=== PATIENT | female | born 1970 | race Caucasian/White ===

== ENCOUNTER → 2017-04-09 | Outpatient (CLI) | payer BC ==
--- NOTE | 2017-04-09 09:21 | NM ---
Nuclear medicine hepatobiliary scan. HISTORY: Pain. DOSAGE: The patient received 8 ounce of Ensure plus and 5.4 mCi of Technetium 99m Choletec. FINDINGS: There is normal hepatic extraction. The gallbladder is seen by 20 minutes. There is bilia ry to bowel clearance by 60 minutes. Ejection fraction is 98%. IMPRESSION: 1. Normal filling of the gallbladder with radiotracer. 2. Ejection fraction 98% can occasionally be seen with hyperdynamic gallbladder. Correlate clinically .
== END ==
LOC: RADNMMAIN 06:50
PROVIDERS: ATTEND Nurse Practitioner Women's Health
DX: R10.84 Generalized abdominal pain (principal); R19.7 Diarrhea, unspecified
CPT/HCPCS: 78226; A9537

== ENCOUNTER → 2017-04-30 | Outpatient (CLI) | payer BC ==
--- NOTE | 2017-05-01 11:06 | MM ---
Reason for exam: screening (asymptomatic). Last mammogram was performed 3 years and 9 months ago. History: Patient had first child at age 30. Family history of breast cancer in maternal aunt. Benign excisional biopsy of the left breast, 1995. Took hormonal contraceptives for 25 years. Took progesterone for 1 month. Physical Findings: A clinical breast exam by your physician is recommended on an annual basis and results should be correlated with mammographic findings. MG Screening Mammo w CAD Bilateral CC and MLO view(s) were taken. Prior study comparison: August 03, 2013, CAD bilateral diagnostic mammogram. January 09, 2011, left diagnostic mammogram w/CAD. The breast tissue is heterogeneously dense. This may lower the sensitivity of mammography. There is no discrete abnormality. No significant changes when compared with prior studies. ASSESSMENT: Negative, BI-RAD 1 RECOMMENDATION: Routine screening mammogram of both breasts in 1 year.
== END | disposition home or self-care (01) ==
LOC: RADMAMWWP 16:40
PROVIDERS: ATTEND Family Medicine
DX: Z12.31 Encounter for screening mammogram for malignant neoplasm of breast (principal); Z80.3 Family history of malignant neoplasm of breast

== ENCOUNTER → 2018-02-11 | Outpatient (CLI) | payer BC ==
[2018-02-11 07:36] LABS: Basophils # (A) 0.1 k/uL (0-0.2); Basophils % (A) 0 %; Eosinophils # (A) 0.2 k/uL (0-0.7); Eosinophils % (A) 2 %; HCT 41.3 % (34.0-46.0); HGB 14.1 gm/dL (11.4-16.0); Lymphocytes # (A) 2.4 k/uL (1.0-4.8); Lymphocytes % (A) 21 %; MCH 32.5 pg (25.0-35.0); MCHC 34.1 g/dL (31.0-37.0); MCV 95.3 fL (80.0-100.0); Mean Platelet Volume 6.6; Monocytes # (A) 0.6 k/uL (0-1.0); Monocytes % (A) 5 %; Neutrophils # (A) 8.2 k/uL (1.3-7.7); Neutrophils % (A) 70 %; Platelet Count 259 k/uL (150-450); RBC 4.33 m/uL (3.80-5.40); RDW 13.6 % (11.5-15.5); WBC 11.7 k/uL (3.8-10.6)
[2018-02-11 09:19] LABS: Erythrocyte Sedimentation Rate 6 mm/hr (0-20)
[2018-02-11 11:16] LABS: Rheumatoid Factor 7 IU/mL (0-15)
[2018-02-11 11:24] LABS: ALT 47 U/L (9-52); AST 29 U/L (14-36); Albumin 3.9 g/dL (3.5-5.0); Alkaline Phosphatase 75 U/L (38-126); Anion Gap 11 mmol/L; Bilirubin, Delta 0.3 mg/dL (0.0-0.2); Bilirubin,Unconjugated 0.1 mg/dL (0.0-1.1); Blood Urea Nitrogen 6 mg/dL (7-17); C Reactive Protein 5.7 mg/L (<10.0); Calcium 9.2 mg/dL (8.4-10.2); Carbon Dioxide 22 mmol/L (22-30); Chloride 107 mmol/L (98-107); Cholesterol 175 mg/dL (<200); Glucose 104 mg/dL (74-99); HDL Cholesterol 28 mg/dL (40-60); LDL Cholesterol,Calculated 72 mg/dL (0-99); Potassium 3.9 mmol/L (3.5-5.1); Sodium 140 mmol/L (137-145); Total Bilirubin 0.4 mg/dL (0.2-1.3); Triglycerides 374 mg/dL (<150)
[2018-02-11 11:38] LABS: T4, Free (Free Thyroxine) 1.11 ng/dL (0.78-2.19)
[2018-02-12 12:35] LABS: HLA B27 NEGATIVE
== END | disposition home or self-care (01) ==
LOC: LABWHC1 07:14
PROVIDERS: ATTEND Family Medicine
DX: Z00.00 Encounter for general adult medical examination without abnormal findings (principal); E78.00 Pure hypercholesterolemia, unspecified; R11.0 Nausea; M13.0 Polyarthritis, unspecified; M79.1 Myalgia; R10.811 Right upper quadrant abdominal tenderness
CPT/HCPCS: 36415; 80048; 80061; 80076; 84439; 84443; 85025; 85652; 86140; 86431; 86618; 86812

== ENCOUNTER → 2018-02-19 | Outpatient (CLI) | payer BC ==
--- NOTE | 2018-02-19 10:12 | US ---
EXAMINATION TYPE: US abdomen complete DATE OF EXAM: 02/19/2018 COMPARISON: NONE CLINICAL HISTORY: R10.11 ABD PAIN. N/D, RUQ pain EXAM MEASUREMENTS: Liver Length: 16.8 cm Gallbladder Wall: 0.2 cm CBD: 0.5 cm CHD: 0.5 cm Spleen: 9.1 cm Right Kidney: 10.1 x 5.3 x 4.8 cm Left Kidney: 10.6 x 5.3 x 5.3 cm Pancreas: Tail obscured by overlying bowel gas Liver: Appears slightly echogenic. Areas of focal sparing seen. Gallbladder: wnl Evidence for sonographic Truong's sign: neg CBD: wnl CHD: wnl Spleen: wnl Right Kidney: wnl Left Kidney: wnl Upper IVC: wnl Abd Aorta: atherosclerotic changes seen The liver is heterogenous which may reflect fatty hepatic infiltration. The intrahepatic portion of t he IVC and proximal abdominal aorta are within normal limits. There is no evidence of cholelithiasis . Common bile duct is unremarkable. The visualized portions of the pancreas are homogenous. The sp munira is unremarkable. Kidneys are symmetric and free of hydronephrosis. No renal lesions are seen. IMPRESSION: 1. Mild fatty hepatic infiltration.
== END | disposition home or self-care (01) ==
LOC: RADUSWWP 09:26
PROVIDERS: ATTEND Family Medicine
DX: K76.0 Fatty (change of) liver, not elsewhere classified (principal)
CPT/HCPCS: 76700

== ENCOUNTER → 2018-03-19 | Outpatient (CLI) | payer BC ==
--- NOTE | 2018-03-19 09:29 | NM ---
Nuclear medicine hepatobiliary scan. HISTORY: Pain. COMPARISON: 04/09/2017 DOSAGE: The patient received 8 ounces of ensure plus and 5.3 mCi of Technetium 99m Choletec. FINDINGS: There is normal hepatic extraction. The gallbladder is seen by 20 minutes. There is bilia ry to bowel clearance by 30 minutes. Ejection fraction is 82%. IMPRESSION: 1. No evidence of cholecystitis. 2. Ejection fraction 82%
== END | disposition home or self-care (01) ==
LOC: RADNMMAIN 06:40
PROVIDERS: ATTEND Surgery
DX: R10.11 Right upper quadrant pain (principal)
CPT/HCPCS: 78227; A9537; J2805

== ENCOUNTER → 2018-07-21 | Outpatient (CLI) | payer BC ==
--- NOTE | 2018-07-21 11:02 | CT ---
EXAMINATION TYPE: CT brain wo/w con DATE OF EXAM: 07/21/2018 COMPARISON: MRI brain September 24, 2014 HISTORY: right side head pressure sudden onset and dizziness. CT DLP: 1956.4 mGycm Automated Exposure Control for Dose Reduction was Utilized. TECHNIQUE: CT scan of the head is performed without and with with IV Contrast, patient injected with 100 mL of Isovue 300. FINDINGS: Noncontrast images show no acute intracranial hemorrhage or midline shift. The ventricles and sulci are stable and within normal limits in size. Postcontrast images show no suspicious enhanc ing intraparenchymal mass. There is suspected stable left central posterior posterior fossa mass or a rachnoid cyst measuring 1.3 x 1.2 x 2.4 cm on axial image 12 and coronal image 54. Mild patchy mucosa l thickening bilateral ethmoid sinuses is redemonstrated. The globes are intact and the visualized si nuses otherwise are clear. Mastoid air cells show no suspicious opacification. IMPRESSION: Mild chronic ethmoid sinus disease redemonstrated. There is suspected small arachnoid cys t just left of midline in the posterior aspect posterior fossa unchanged in size and appearance from prior MRI. No suspicious new findings are seen to account for patient's symptoms.
[2018-07-21 11:09] LABS: Basophils # (A) 0.1 k/uL (0-0.2); Basophils % (A) 1 %; Eosinophils # (A) 0.2 k/uL (0-0.7); Eosinophils % (A) 1 %; HCT 43.5 % (34.0-46.0); HGB 13.6 gm/dL (11.4-16.0); Lymphocytes # (A) 2.1 k/uL (1.0-4.8); Lymphocytes % (A) 18 %; MCH 30.6 pg (25.0-35.0); MCHC 31.4 g/dL (31.0-37.0); MCV 97.6 fL (80.0-100.0); Mean Platelet Volume 7.2; Monocytes # (A) 0.3 k/uL (0-1.0); Monocytes % (A) 3 %; Neutrophils # (A) 8.5 k/uL (1.3-7.7); Neutrophils % (A) 76 %; Platelet Count 280 k/uL (150-450); RBC 4.46 m/uL (3.80-5.40); RDW 13.1 % (11.5-15.5); WBC 11.2 k/uL (3.8-10.6)
[2018-07-21 11:25] LABS: ALT 50 U/L (9-52); AST 35 U/L (14-36); Albumin 4.3 g/dL (3.5-5.0); Alkaline Phosphatase 64 U/L (38-126); Anion Gap 12 mmol/L; Blood Urea Nitrogen 10 mg/dL (7-17); Calcium 9.8 mg/dL (8.4-10.2); Carbon Dioxide 22 mmol/L (22-30); Chloride 108 mmol/L (98-107); Glucose 170 mg/dL (74-99); Sodium 142 mmol/L (137-145); Total Bilirubin 0.4 mg/dL (0.2-1.3); Total Protein 6.9 g/dL (6.3-8.2)
[2018-07-21 11:33] LABS: Potassium 4.6 mmol/L (3.5-5.1)
== END | disposition home or self-care (01) ==
LOC: RADCTMAIN 10:17
PROVIDERS: ATTEND Family Medicine
DX: H53.9 Unspecified visual disturbance (principal); F17.200 Nicotine dependence, unspecified, uncomplicated
CPT/HCPCS: 80053; 84443; 85025; 70470; 36415; Q9967

== ENCOUNTER → 2018-09-05 | Outpatient (CLI) | payer BC ==
--- NOTE | 2018-09-08 11:56 | MM ---
Reason for exam: screening (asymptomatic). Last mammogram was performed 1 year and 4 months ago. History: Patient is postmenopausal and had first child at age 30. Family history of breast cancer in maternal aunt. Benign excisional biopsy of the left breast, 1995. Took hormonal contraceptives for 25 years. Took progesterone for 1 month. Physical Findings: A clinical breast exam by your physician is recommended on an annual basis and results should be correlated with mammographic findings. MG Screening Mammo w CAD Bilateral CC and MLO view(s) were taken. Prior study comparison: April 30, 2017, bilateral MG screening mammo w CAD. August 03, 2013, CAD bilateral diagnostic mammogram. The breast tissue is heterogeneously dense. This may lower the sensitivity of mammography. No suspicious abnormality. No significant changes when compared with prior studies. ASSESSMENT: Negative, BI-RAD 1 RECOMMENDATION: Routine screening mammogram of both breasts in 1 year.
== END | disposition home or self-care (01) ==
LOC: RADMAMWWP 15:29
PROVIDERS: ATTEND Family Medicine
DX: Z12.31 Encounter for screening mammogram for malignant neoplasm of breast (principal); Z80.3 Family history of malignant neoplasm of breast
CPT/HCPCS: 77067

== ENCOUNTER → 2018-10-01 | Outpatient (CLI) | payer BC | LOC: NEUROMAIN 06:48 | PROVIDERS: ATTEND Otolaryngology | DX: R42 Dizziness and giddiness (principal) | CPT/HCPCS: 92537; 92540 ==

== ENCOUNTER → 2020-09-21 | Outpatient (CLI) | payer BC ==
--- NOTE | 2020-09-21 14:55 | XR ---
EXAMINATION TYPE: XR chest 2V DATE OF EXAM: 09/21/2020 COMPARISON: NONE TECHNIQUE: PA and lateral views submitted. HISTORY: Chest pain FINDINGS: The lungs are clear and there is no pneumothorax, pleural effusion, or focal pneumonia. Heart size normal. No overt failure. Arthropathy of the shoulders. Hypertrophic and degenerative change of the s pine. IMPRESSION: 1. No acute process.
--- NOTE | 2020-09-21 15:55 | XR ---
EXAM TYPE: LUMBAR SPINE X RAY SERIES COMPARISON: NONE HISTORY: Pain TECHNIQUE: 4 views are submitted. FINDINGS: Alignment is anatomic. The pedicles are intact. The transverse processes are intact. There is mult ilevel degenerative disc disease most marked at L4-L5 with facet arthropathy. Grade 1 anterolisthesis L4 on L5.. Calcifications in the left upper quadrant noted. Metallic density within the pelvis. Vas cular calcifications are seen. IMPRESSION: 1. Multilevel moderate to severe degenerative disc disease most marked at L4-L5 with grade 1 anteroli sthesis. Recommend MRI..
== END | disposition home or self-care (01) ==
LOC: LABWHC1 13:58
PROVIDERS: ATTEND Nurse Practitioner Women's Health
DX: R06.81 Apnea, not elsewhere classified (principal); R06.02 Shortness of breath; M54.18 Radiculopathy, sacral and sacrococcygeal region; R07.9 Chest pain, unspecified; R06.9 Unspecified abnormalities of breathing; M43.16 Spondylolisthesis, lumbar region; M51.36 Other intervertebral disc degeneration, lumbar region
CPT/HCPCS: 36415; 71046; 72110; 93005

== ENCOUNTER → 2020-11-02 | Outpatient (CLI) | payer BC ==
--- NOTE | 2020-11-02 16:42 | CONS ---
CONSULTATION DATE OF SERVICE: 11/02/2020 REASON FOR CONSULTATION: A 50-year-old lady who has been evaluated in the sleep center for possible obstructive sleep apnea-hypopnea syndrome. HISTORY OF PRESENT ILLNESS/SLEEP-WAKE EVALUATION: Patient's usual sleep schedule on weekdays from 7 to 10 PM to 5:15 am and on weekends from 11:00 PM until 6 or 7 a.m. Usually no problems with falling asleep, although she has TV set in bedroom. She sleeps on the side and sometimes in different positions. She has loud snoring and awakenings from sleep a few times with witnessed episodes of stopped breathing during sleep, but also with episodes of choking, gasping for air. She has also episodes of panic attacks when she wakes up and when she cannot breathe. Positive history of grinding teeth and sweating. Positive history of sleep talking. In the morning the patient wakes up tired and has difficulties paying attention. She has problems with memory, concentration, diabetes, depression and anxiety. Nebo Sleepiness Scale increased to 12. Usually patient does not take naps. No history of hypnagogic hallucinations, sleep paralysis or cataplexy. PAST MEDICAL HISTORY: Positive for episodes of headaches, sinus problems, acid reflux, endometriosis. PAST SURGICAL HISTORY: Partial hysterectomy, , endometrial ablation. MEDICATIONS: Celecoxib 200 mg twice a day. SOCIAL HISTORY: Positive history of smoking for about 13 pack years. Quit smoking in February of 2020. REVIEW OF SYSTEMS: Awakenings from sleep, loud snoring, sleepiness during the day. PHYSICAL EXAMINATION: GENERAL: Patient without distress. BP 146/73, HR 68, RR 12, height 5 feet 4 inches, weight 229, BMI 39.3, oxygen saturation at room air 97%. HEENT: PERRLA, EOMI, evaluation of oropharynx showed tongue protrudes midline, low position of soft palate, Mallampati 3. NECK: Supple, no JVD. Thyroid is not palpable. Wide neck 18 inches in circumference. LUNGS: Clear to percussion and to auscultation. Good air exchange. No wheezing or rhonchi. HEART: S1, S2 regular. No murmurs, gallops, or rubs. ABDOMEN: Obese, soft and nontender. Bowel sounds are present. No organomegaly appreciated. EXTREMITIES: No clubbing or cyanosis. NAVAL AIRCREWMAN HELICOPTER: Awake, alert, and oriented X3. Cranial nerves 2 to 7 intact. There is no fasciculation or atrophy. noted. No focal deficits observed. IMPRESSION: 1. Loud snoring, witnessed episodes of stopped breathing during sleep, multiple awakenings from sleep with episodes of choking. Low position of soft palate, wide neck 18 inches in circumference. Nebo Sleepiness Scale increased to 12; obstructive sleep apnea-hypopnea syndrome. 2. Obesity with BMI 39.2. 3. Headaches. 4. Sinuses problems. 5. History of acid reflux. 6. History of endometriosis in the past. 7. Status post partial hysterectomy. 8. Status post . PLAN: 1. Home sleep apnea test for evaluation of patient's breathing during sleep. 2. CPAP/BiPAP titration if sleep study confirms obstructive sleep apnea-hypopnea syndrome. 3. Preferable position during sleep on the side. 4. No driving if patient feels any sleepiness. 5. I will see patient for follow up visit to explain results of testing and following plan. Thank you very much for allowing me to participate in the management of your patient. Sincerely, Hansel Gary MD, PhD, FAASM Diplomat of [place] [employer] [place] [employer] Plant Technical Specialist of [facility] [place] MMODL / IJN: [id number] /
== END ==
LOC: SLEEP 15:35
PROVIDERS: ATTEND Internal Medicine
DX: G47.33 Obstructive sleep apnea (adult) (pediatric) (principal); E66.9 Obesity, unspecified; Z68.39 Body mass index [BMI] 39.0-39.9, adult; K21.9 Gastro-esophageal reflux disease without esophagitis; R51.9 Headache, unspecified; Z87.42 Personal history of other diseases of the female genital tract; Z90.711 Acquired absence of uterus with remaining cervical stump; Z98.890 Other specified postprocedural states; Z87.891 Personal history of nicotine dependence
CPT/HCPCS: 99211

== ENCOUNTER → 2021-01-23 | Outpatient (CLI) | payer BC ==
--- NOTE | 2021-01-24 11:13 | MM ---
Reason for exam: screening (asymptomatic). Last mammogram was performed 2 years and 5 months ago. History: Patient is postmenopausal and had first child at age 30. Family history of breast cancer in maternal aunt. Benign excisional biopsy of the left breast, 1995. Took hormonal contraceptives for 25 years. Took progesterone for 1 month. Physical Findings: A clinical breast exam by your physician is recommended on an annual basis and results should be correlated with mammographic findings. MG Screening Mammo w CAD Bilateral CC and MLO view(s) were taken. Prior study comparison: September 05, 2018, bilateral MG screening mammo w CAD. April 30, 2017, bilateral MG screening mammo w CAD. The breast tissue is heterogeneously dense. This may lower the sensitivity of mammography. There is no discrete abnormality. No significant changes when compared with prior studies. ASSESSMENT: Negative, BI-RAD 1 RECOMMENDATION: Routine screening mammogram of both breasts in 1 year.
== END | disposition home or self-care (01) ==
LOC: RADMAMWWP 16:10
PROVIDERS: ATTEND Family Medicine
DX: Z12.31 Encounter for screening mammogram for malignant neoplasm of breast (principal)
CPT/HCPCS: 77067

== ENCOUNTER → 2021-05-11 | Outpatient (CLI) | payer BC ==
--- NOTE | 2021-05-11 18:28 | SFUN ---
SLEEP CENTER FOLLOW UP NOTE DATE OF SERVICE: 05/11/2021 This 50-year-old lady has been followed in Sleep Center for treatment of obstructive sleep apnea-hypopnea syndrome. Recently the patient had a home sleep apnea test which showed that the patient has obstructive sleep apnea, and then she was started on treatment with AutoPAP. Today is her first visit after treatment was started. After starting treatment with CPAP, the patient is seeing more dreams during sleep, which possibly indicates that she has more periods of REM sleep, and the quality of her sleep is becoming better. It is more deep. At the same time, Mcclure Sleepiness Scale is still increased at 14 now. I checked her CPAP unit. Range of the pressure is 5 to 17, average pressure 9.6. Usage 29/30 nights. Average usage 7.2 hours per night. Leak is 6 L/minute, which is normal. Apnea-hypopnea index is 2.2, which is normal. MEDICATIONS: Celecoxib 200 mg twice a day. PHYSICAL EXAMINATION: GENERAL: Pleasant patient in no distress. VITAL SIGNS: BP 130/60, HR 70, RR 16, weight 220.2 pounds, temperature 97.2, oxygen saturation at room air 98%. HEENT: PERRLA, EOMI, evaluation of oropharynx showed tongue protrudes midline. Low position of soft palate; Mallampati III. NECK: Supple, no JVD. Thyroid is not palpable. LUNGS: Clear to percussion and to auscultation. Good air exchange. No wheezing or rhonchi. HEART: S1, S2 regular. No murmurs, gallops, or rubs. ABDOMEN: Obese. EXTREMITIES: No clubbing or cyanosis. GORE SEAMER: Awake, alert, and oriented X3. Cranial nerves 2 to 7 intact. There is no fasciculation or atrophy. noted. No focal deficits observed. IMPRESSION: 1. Obstructive sleep apnea-hypopnea syndrome. The patient demonstrated great compliance with treatment, benefitting from treatment. 2. Excessive daytime sleepiness. 3. Headaches. 4. Sinus problems. 5. History of acid reflux. 6. History of endometriosis in the past. 7. Status post partial hysterectomy. 8. Status post . PLAN: 1. I discussed with the patient in detail recommendation about using CPAP, including position of the machine, drying the water chamber and hose, changing air filter. 2. If the patient continues to feel sleepiness, we may consider a multiple sleep latency test. 3. Patient will continue to use PAP equipment every night for the hole night. 4. Sleep hygiene with regular time in bed for at least 7-1/2 to 8 hours. 5. Precautions related to driving. No driving if feeling sleepiness. 6. I will maintain all necessary prescription for PAP supplies including mask, tube, filters. 7. Watching weight. 8. Follow-up visit in 6 months or earlier if patient has any problems. Thank you very much for allowing me to participate in the management of your patient. Sincerely, Hansel Gary MD, PhD, FAASM Diplomat of [employer] Sleep Medicine Board of [place] [employer] of Internal Medicine Inspector Packager of [facility] [place] MMKRISTINAL / RUBÉNN: [id number] /
== END | disposition home or self-care (01) ==
LOC: SLEEP 15:59
PROVIDERS: ATTEND Internal Medicine
DX: G47.33 Obstructive sleep apnea (adult) (pediatric) (principal); R51.9 Headache, unspecified; K21.9 Gastro-esophageal reflux disease without esophagitis

== ENCOUNTER → 2021-11-15 | Outpatient (CLI) | payer BC ==
--- NOTE | 2021-11-15 21:21 | SFUN ---
SLEEP CENTER FOLLOW UP NOTE DATE OF SERVICE: 11/15/2021 51-year-old lady has been followed in Sleep Center for treatment of obstructive sleep apnea-hypopnea syndrome. The patient continues to use her CPAP equipment but recently had an episode when there was water in her mask. She was scared and stopped using CPAP equipment for several weeks. Speculator Sleepiness Scale today is 9. I checked her CPAP unit. Range of the pressure 5-17. The patient using it 8/30 nights and 03/03 nights more than 4 hours, average 6.3 hours per night. Leak is 19 L/minute, which is acceptable. Apnea-hypopnea index was 1.8 which is normal range. Filter needs to be replaced. Position of the machine during the night is in about the same level as head of the patient. The patient using regular, not heated tube. Tube was damaged by . MEDICATIONS: Metformin, atorvastatin. PHYSICAL EXAMINATION: GENERAL: Patient in no distress. BP 127/81, HR 80, RR 18, weight 223.4, temperature 97.2, oxygen saturation at room air 97%. Oropharynx low position of soft palate, Mallampati 3. NECK: Supple, no JVD. Thyroid is not palpable. LUNGS: Clear to percussion and to auscultation. Good air exchange. No wheezing or rhonchi. HEART: S1, S2 regular. No murmurs, gallops, or rubs. ABDOMEN: Obese. Soft and nontender. Bowel sounds are present. No organomegaly appreciated. EXTREMITIES: No clubbing or cyanosis. EQUIPMENT ANALYST: Awake, alert, and oriented X3. Cranial nerves 2 to 7 intact. There is no fasciculation or atrophy. noted. No focal deficits observed. IMPRESSION: 1. Obstructive sleep apnea-hypopnea syndrome, normal respiration on CPAP. The patient had some problem related to humidity regulation and water in her mask. 2. History of headaches. 3. History of sinus problems. 4. History of acid reflux. 5. History of endometriosis in the past. 6. Status post partial hysterectomy. 7. Status post . PLAN: 1. I discussed in detail with the patient position of the machine and tube. Machine should stay lower than her head and tube should stay direct from her mask to the machine. 2. Prescription for all supplies and additionally for heated tube was written to prevent condensation. 3. The patient will restart to use CPAP equipment and should use it every night for the whole night. 4. Losing weight. 5. No driving if feeling sleepiness. 6. Follow-up visit in 6 months or earlier if patient has any problems. Thank you very much for allowing me to participate in the management of your patient. Sincerely, Hansel Gary MD, PhD, FAASM Diplomat of [place] [employer] Sleep Medicine Board of [place] [employer] Design/Animation Instructor of [facility] [place] MMODL / IJN: [id number] /
== END | disposition home or self-care (01) ==
LOC: SLEEP 16:12
PROVIDERS: ATTEND Internal Medicine
DX: G47.33 Obstructive sleep apnea (adult) (pediatric) (principal); Z86.69 Personal history of other diseases of the nervous system and sense organs; Z87.19 Personal history of other diseases of the digestive system; Z98.890 Other specified postprocedural states

== ENCOUNTER 2022-02-20 09:58 | Day surgery (SDC) | payer BC ==
[2022-02-19 09:29] VITALS: BMI 39.8
[~2022-02-20 09:58] MED LIST: LACTATED RINGERS 1,000 ML IV SCH
[2022-02-20 11:05] LABS: Glucose,Whole Blood 124 mg/dL (70-110)
[2022-02-20 11:06] VITALS: TEMP 98.7
[2022-02-20] MEDS ORDERED: PROPOFOL 10 MG/ML 20 ML VIAL IV ONE (11:27)
--- NOTE | 2022-02-20 11:29 | P.GSHP ---
History of Present Illness H&P Date: 02/20/22 Chief Complaint: Colon cancer screening 51-year-old female here today for colonoscopy. She had a colonoscopy last at age 25 which was normal. No change in bowel habits. No rectal bleeding or melena. No family history of colon cancer. Past Medical History Past Medical History: Diabetes Mellitus, Osteoarthritis (OA), Sleep Apnea/CPAP/BIPAP Additional Past Medical History / Comment(s): C PAP MACHINE History of Any Multi-Drug Resistant Organisms: None Reported Past Surgical History: Section, Hysterectomy, Tubal Ligation, Uterine Ablation Additional Past Surgical History / Comment(s): LAPAROSCOPIC SURGERY, CARPAL TUNNEL RELEASE RIGHT WRIST, PAIN CLINIC INJECTIONS Past Anesthesia/Blood Transfusion Reactions: Previous Problems w/ Anesthesia Additional Past Anesthesia/Blood Transfusion Reaction / Comment(s): PATIENT STATES WORK UP WITH SURGERY - CARPAL TUNNEL SURGERY Smoking Status: Former smoker - Past Family History Mother Family Medical History: Cancer Additional Family Medical History / Comment(s): MELENOMA Sister(s) Family Medical History: Cancer Additional Family Medical History / Comment(s): MELENOMA Medications and Allergies Home Medications Medication Instructions Recorded Confirmed Type Ibuprofen [Motrin] 800 mg PO Q8H PRN 02/19/22 02/20/22 History metFORMIN HCL [Glucophage] 500 mg PO BID 02/19/22 02/20/22 History Allergies Allergy/AdvReac Type Severity Reaction Status Date / Time No Known Allergies Allergy Verified 02/20/22 10:42 Surgical - Exam Vital Signs Temp Pulse Resp BP Pulse Ox 98.7 F 75 16 189/82 96 02/20/22 11:00 02/20/22 11:00 02/20/22 11:00 02/20/22 11:00 02/20/22 11:00 Physical exam: General: Well-developed, well-nourished HEENT: Normocephalic, sclerae nonicteric Abdomen: Nontender, nondistended Extremities: No edema Neuro: Alert and oriented Results - Labs Abnormal Lab Results - Last 24 Hours (Table) 02/20/22 Range/Units 10:59 POC Glucose (mg/dL) 124 H (70-110) mg/dL Assessment and Plan (1) Colon cancer screening Narrative/Plan: Will proceed with colonoscopy at this time. Current Visit: Yes Status: Acute Code(s): Z12.11 - ENCOUNTER FOR SCREENING FOR MALIGNANT NEOPLASM OF COLON SNOMED Code(s): 000930916
--- NOTE | 2022-02-20 11:53 | P.PCN ---
Date of Procedure: 02/20/22 Procedure(s) Performed: PREOPERATIVE DIAGNOSIS: Colon cancer screening POSTOPERATIVE DIAGNOSIS: Ascending colon polyp, mild diverticulosis PROCEDURE: Colonoscopy snare polypectomy ANESTHESIA: MAC SURGEON: Jm De La Paz M.D. SPECIMENS: Ascending colon polyp ENDOSCOPIC PROCEDURE: The patient was placed on the endoscopy table in the left decubitus position. The Olympus colonoscope was inserted into the anus and passed under direct visualization to the base of the cecum. The appendiceal orifice was visualized. From that point the scope was slowly withdrawn inspecting all surfaces carefully. There were no neoplastic inflammatory or polypoid lesions throughout the cecum. In the ascending colon a small polyp was seen and removed using the snare with cautery technique. The remainder of the ascending transverse descending sigmoid and rectum appeared normal. There was left-sided diverticulosis. The patient's prep was somewhat suboptimal. Digital rectal examination was normal. The patient was taken to the recovery room in stable condition per anesthesia guidelines. RECOMMENDATIONS: Await biopsy results. Repeat colonoscopy in 5 to 10yearsbasedonpathologyfindings.
[2022-02-20 12:11] VITALS: BP 138/74; PULSE 67; RESP 16
== END 2022-02-20 12:29 | disposition home or self-care (01) ==
LOC: ORWHC2ENDO 09:58
PROVIDERS: ATTEND Surgery
DX: Z12.11 Encounter for screening for malignant neoplasm of colon (principal); D12.2 Benign neoplasm of ascending colon; K57.30 Diverticulosis of large intestine without perforation or abscess without bleeding; E11.9 Type 2 diabetes mellitus without complications; M19.90 Unspecified osteoarthritis, unspecified site; G47.30 Sleep apnea, unspecified; E66.01 Morbid (severe) obesity due to excess calories; Z68.38 Body mass index [BMI] 38.0-38.9, adult; Z98.891 History of uterine scar from previous surgery; Z90.710 Acquired absence of both cervix and uterus; Z98.51 Tubal ligation status; Z98.890 Other specified postprocedural states; Z87.891 Personal history of nicotine dependence; Z80.8 Family history of malignant neoplasm of other organs or systems; Z79.84 Long term (current) use of oral hypoglycemic drugs
CPT/HCPCS: 88305; 45385; J2704

== ENCOUNTER → 2022-02-28 | Outpatient (CLI) | payer BC ==
--- NOTE | 2022-03-01 15:02 | MM ---
Reason for Exam: Screening (asymptomatic). Last mammogram was performed 1 year(s) and 1 month(s) ago. Patient History: Menarche at age 9. First Full-Term at age 30. Late child-bearing (after 29). Left ovary removed at age 40. Right ovary removed at age 40. Hysterectomy at age 40. Postmenopausal. Progesterone for 1 month until age 28. Patient used Hormonal Contraceptives for 25 years. 1996, Benign Excisional Biopsy on the left side. Maternal aunt had breast cancer, age 50. Risk Values: Caren 5 year model risk: 1.9%. NCI Lifetime model risk: 15.0%. Prior Study Comparison: 04/30/2017 Bilateral Screening Mammogram, [facility]. 09/05/2018 Bilateral Screening Mammogram, [facility]. 01/23/2021 Bilateral Screening Mammogram, [facility]. Tissue Density: The breast tissue is heterogeneously dense. This may lower the sensitivity of mammography. Findings: Analyzed By CAD. Some subtle stable distortion in the anterior left mediolateral oblique view remains present. No suspicious groups of microcalcifications, spiculated or lobular masses, architectural distortion or other secondary signs of malignancy are mammographically apparent. Overall Assessment: Benign, BI-RAD 2 Management: Screening Mammogram of both breasts in 1 year. A negative mammogram report should not preclude additional follow up of suspicious palpable abnormalities. Patient should continue monthly self breast exam. A clinical breast exam by your physician is recommended on an annual basis and results should be correlated with mammographic findings. Electronically signed and approved by: Lenin Fraser D.O. Radiologis
== END | disposition home or self-care (01) ==
LOC: RADMAMWWP 16:47
PROVIDERS: ATTEND Family Medicine
DX: Z12.31 Encounter for screening mammogram for malignant neoplasm of breast (principal); Z00.00 Encounter for general adult medical examination without abnormal findings
CPT/HCPCS: 77067

== ENCOUNTER → 2022-03-02 | Outpatient (CLI) | payer BC ==
--- NOTE | 2022-03-02 08:18 | US ---
EXAMINATION TYPE: US abdomen complete DATE OF EXAM: 03/02/2022 COMPARISON: NONE CLINICAL HISTORY: R10.2 PELVIC PAIN R10.84 ABD PAIN. TECHNIQUE: Multiple sonographic images of the abdomen are obtained. FINDINGS: EXAM MEASUREMENTS: Liver Length: 20. cm Gallbladder Wall: 0.2 cm CBD: 0.4 cm Spleen: 10.6 cm Right Kidney: 10.5 x 4.1 x 4.8 cm Left Kidney: 11.0 x 5.2 x 4.9 cm CONTINUOUS STILL OPERATOR NOTES: Pancreas: Partially obscured by bowel gas Liver: enlarged, probable focal fatty sparing adjacent to gallbladder Gallbladder: wnl Evidence for sonographic Truong's sign: No CBD: wnl Spleen: wnl Right Kidney: No hydronephrosis or masses seen Left Kidney: No hydronephrosis or masses seen Upper IVC: wnl Abd Aorta: Aorta very difficult to visualize due to body habitus, difficult to show color doppler, t here appears to be atherosclerotic changes within the aorta suggestive of stenosis, suggest further i maging. Patient states that she does have burning in her calves when walking and leg pain. Patient of large body habitus with large abdomen. Technically difficult somewhat limiteds study. IMPRESSION: 1. Hepatomegaly
--- NOTE | 2022-03-02 16:05 | US ---
EXAMINATION TYPE: US pelvic complete DATE OF EXAM: 03/02/2022 COMPARISON: NONE CLINICAL HISTORY: R10.2 PELVIC PAIN R10.84 ABDOMIANL PAIN. TECHNIQUE: . Transabdominal sonographic images of the pelvis were acquired. Transvaginal sonographi c images were medically necessary to better assess the following anatomy: Date of LMP: EXAM MEASUREMENTS: Uterus: Surgically absent Endometrial Stripe: Surgically absent Right Ovary: 3.0 x 1.7 x 1.4 cm Left Ovary: 2.9 x 1.8 x 1.5 cm 1. Uterus: Surgically absent 2. Endometrium: Surgically absent 3. Right Ovary: wnl 4. Left Ovary: wnl 5. Bilateral Adnexa: wnl 6. Posterior cul-de-sac: wnl IMPRESSION: 1. No acute ultrasound abnormality pelvic ultrasound. Follow-up can be performed as clinically indica isaak.
== END | disposition home or self-care (01) ==
LOC: RADUSWWP 06:50
PROVIDERS: ATTEND Family Medicine
DX: R16.0 Hepatomegaly, not elsewhere classified (principal); R10.2 Pelvic and perineal pain; R10.84 Generalized abdominal pain
CPT/HCPCS: 76700; 76856

== ENCOUNTER 2022-04-14 13:41 | Emergency (ER) | payer BC ==
[2022-04-14 14:29] VITALS: RESP 18; TEMP 98.7
[2022-04-14] MEDS ORDERED: SODIUM CHLORIDE 0.9% 500 ML 500 ML IV STA (15:11)
[2022-04-14] MEDS ORDERED: HYDROmorphone 0.5 MG/0.5 ML SYRINGE IVP STA (15:11)
--- NOTE | 2022-04-14 15:15 | ED ---
Abdominal Pain HPI - General Chief Complaint: Abdominal Pain Stated Complaint: Diverticulosis Time Seen by Provider: 04/14/22 15:04 Source: patient, RN notes reviewed, old records reviewed Mode of arrival: ambulatory Limitations: no limitations - History of Present Illness Initial Comments: This is a well-appearing 51-year-old female that presents alert and oriented 4 with complaints of left lower quadrant pain that started yesterday. Patient states this started off as an ache and is now sharp in nature. She states that she was recently diagnosed in February with diverticulosis. She denies any fevers or nausea/vomiting. She has a history of diabetes, osteoarthritis; surgical history of hysterectomy. She is a previous smoker. MD Complaint: abdominal pain -: days(s) (2) Location: LLQ Radiation: none Severity scale (1-10): 7 Quality: aching (started as ache now sharp), sharp Associated Symptoms: diarrhea - Related Data Home Medications Medication Instructions Recorded Confirmed Ibuprofen [Motrin] 800 mg PO Q8H PRN 02/19/22 02/20/22 metFORMIN HCL [Glucophage] 500 mg PO BID 02/19/22 02/20/22 Previous Rx's Medication Instructions Recorded Amoxic-Pot Clav 875-125Mg 1 tab PO BID 10 Days #20 tab 04/14/22 [Augmentin 875-125] Allergies Allergy/AdvReac Type Severity Reaction Status Date / Time No Known Allergies Allergy Verified 04/14/22 14:27 Review of Systems ROS Statement: Those systems with pertinent positive or pertinent negative responses have been documented in the HPI. ROS Other: All systems not noted in ROS Statement are negative. Past Medical History Past Medical History: Diabetes Mellitus, Osteoarthritis (OA), Sleep Apnea/CPAP/B IPAP Additional Past Medical History / Comment(s): C PAP MACHINE History of Any Multi-Drug Resistant Organisms: None Reported Past Surgical History: Section, Hysterectomy, Tubal Ligation, Uterine Ablation Additional Past Surgical History / Comment(s): LAPAROSCOPIC SURGERY, CARPAL TUNNEL RELEASE RIGHT WRIST, PAIN CLINIC INJECTIONS Past Anesthesia/Blood Transfusion Reactions: Previous Problems w/ Anesthesia Additional Past Anesthesia/Blood Transfusion Reaction / Comment(s): PATIENT STATES WORK UP WITH SURGERY - CARPAL TUNNEL SURGERY Past Psychological History: No Psychological Hx Reported Smoking Status: Former smoker - Past Family History Mother Family Medical History: Cancer Additional Family Medical History / Comment(s): MELENOMA Sister(s) Family Medical History: Cancer Additional Family Medical History / Comment(s): MELENOMA General Exam Limitations: no limitations General appearance: alert, in no apparent distress Head exam: Present: atraumatic Eye exam: Absent: scleral icterus, conjunctival injection, periorbital swelling Neck exam: Absent: meningismus Respiratory exam: Present: normal lung sounds bilaterally. Absent: respiratory distress, wheezes, rales, rhonchi, stridor, chest wall tenderness, accessory muscle use Cardiovascular Exam: Present: regular rate GI/Abdominal exam: Present: soft, tenderness (llq). Absent: distended, guarding, rebound, rigid Extremities exam: Present: normal capillary refill Back exam: Present: normal inspection, full ROM. Absent: tenderness, CVA tenderness (R), CVA tenderness (L), rash noted Neurological exam: Present: alert, oriented X3, normal gait Psychiatric exam: Present: normal affect, normal mood Skin exam: Present: warm, dry, normal color. Absent: cyanosis, diaphoretic, petechiae, pallor Course Vital Signs 04/14/22 04/14/22 14:27 17:12 Temperature 98.7 F Pulse Rate 98 81 Respiratory 18 18 Rate Blood Pressure 145/92 164/78 O2 Sat by Pulse 96 99 Oximetry Medical Decision Making - Medical Decision Making CT shows inflammatory changes consistent with acute diverticulitis lower descending colon. Normal appendix no evidence of abscess. Patient will be placed on antibiotics Slight leukocytosis. Patient is afebrile. She is feeling better after IV fluids and pain medication. She's had no nausea or vomiting emergency room. Patient prescribed Augmentin directed to follow up with her primary care doctor and return with any new or concerning symptoms. Case discussed with Dr. Padilla. - Lab Data Result diagrams: 04/14/22 15:25 04/14/22 15:25 Lab Results 04/14/22 04/14/22 04/14/22 Range/Units 15:25 15:25 15:25 WBC 12.0 H (3.8-10.6) k/uL RBC 4.46 (3.80-5.40) m/uL Hgb 13.6 (11.4-16.0) gm/dL Hct 42.5 (34.0-46.0) % MCV 95.2 (80.0-100.0) fL MCH 30.4 (25.0-35.0) pg MCHC 31.9 (31.0-37.0) g/dL RDW 13.0 (11.5-15.5) % Plt Count 232 (150-450) k/uL MPV 7.6 Neutrophils % 72 % Lymphocytes % 20 % Monocytes % 5 % Eosinophils % 1 % Basophils % 1 % Neutrophils # 8.6 H (1.3-7.7) k/uL Lymphocytes # 2.4 (1.0-4.8) k/uL Monocytes # 0.6 (0-1.0) k/uL Eosinophils # 0.2 (0-0.7) k/uL Basophils # 0.1 (0-0.2) k/uL PT 9.8 (9.0-12.0) sec INR 0.9 (<1.2) APTT 25.1 (22.0-30.0) sec Sodium 137 (137-145) mmol/L Potassium 4.1 (3.5-5.1) mmol/L Chloride 101 (98-107) mmol/L Carbon Dioxide 22 (22-30) mmol/L Anion Gap 14 mmol/L BUN 9 (7-17) mg/dL Creatinine 0.69 (0.52-1.04) mg/dL Est GFR (CKD-EPI)AfAm >90 (>60 ml/min/1.73 sqM) Est GFR (CKD-EPI)NonAf >90 (>60 ml/min/1.73 sqM) Glucose 175 H (74-99) mg/dL Lactic Ac Sepsis Rflx Plasma Lactic Acid Graeme (0.7-2.0) mmol/L Calcium 9.6 (8.4-10.2) mg/dL Total Bilirubin 0.5 (0.2-1.3) mg/dL AST 48 H (14-36) U/L ALT 63 H (4-34) U/L Alkaline Phosphatase 80 (38-126) U/L Total Protein 7.2 (6.3-8.2) g/dL Albumin 4.7 (3.5-5.0) g/dL Amylase 59 (30-110) U/L Lipase 60 (23-300) U/L Urine Color Urine Appearance (Clear) Urine pH (5.0-8.0) Ur Specific [place] (1.001-1.035) Urine Protein (Negative) Urine Glucose (UA) (Negative) Urine Ketones (Negative) Urine Blood (Negative) Urine Nitrite (Negative) Urine Bilirubin (Negative) Urine Urobilinogen (<2.0) mg/dL Ur Leukocyte Esterase (Negative) Urine RBC (0-5) /hpf Urine WBC (0-5) /hpf Ur Squamous Epith Cells (0-4) /hpf Urine Bacteria (None) /hpf Urine Mucus (None) /hpf 04/14/22 04/14/22 04/14/22 Range/Units 15:25 15:45 17:12 WBC (3.8-10.6) k/uL RBC (3.80-5.40) m/uL Hgb (11.4-16.0) gm/dL Hct (34.0-46.0) % MCV (80.0-100.0) fL MCH (25.0-35.0) pg MCHC (31.0-37.0) g/dL RDW (11.5-15.5) % Plt Count (150-450) k/uL MPV Neutrophils % % Lymphocytes % % Monocytes % % Eosinophils % % Basophils % % Neutrophils # (1.3-7.7) k/uL Lymphocytes # (1.0-4.8) k/uL Monocytes # (0-1.0) k/uL Eosinophils # (0-0.7) k/uL Basophils # (0-0.2) k/uL PT (9.0-12.0) sec INR (<1.2) APTT (22.0-30.0) sec Sodium (137-145) mmol/L Potassium (3.5-5.1) mmol/L Chloride (98-107) mmol/L Carbon Dioxide (22-30) mmol/L Anion Gap mmol/L BUN (7-17) mg/dL Creatinine (0.52-1.04) mg/dL Est GFR (CKD-EPI)AfAm (>60 ml/min/1.73 sqM) Est GFR (CKD-EPI)NonAf (>60 ml/min/1.73 sqM) Glucose (74-99) mg/dL Lactic Ac Sepsis Rflx Y Plasma Lactic Acid Graeme 2.1 H* (0.7-2.0) mmol/L Calcium (8.4-10.2) mg/dL Total Bilirubin (0.2-1.3) mg/dL AST (14-36) U/L ALT (4-34) U/L Alkaline Phosphatase (38-126) U/L Total Protein (6.3-8.2) g/dL Albumin (3.5-5.0) g/dL Amylase (30-110) U/L Lipase (23-300) U/L Urine Color Light Yellow Urine Appearance Cloudy H (Clear) Urine pH 5.5 (5.0-8.0) Ur Specific [place] 1.027 (1.001-1.035) Urine Protein Negative (Negative) Urine Glucose (UA) Negative (Negative) Urine Ketones Negative (Negative) Urine Blood Negative (Negative) Urine Nitrite Positive H (Negative) Urine Bilirubin Negative (Negative) Urine Urobilinogen <2.0 (<2.0) mg/dL Ur Leukocyte Esterase Large H (Negative) Urine RBC 2 (0-5) /hpf Urine WBC 44 H (0-5) /hpf Ur Squamous Epith Cells 3 (0-4) /hpf Urine Bacteria Rare H (None) /hpf Urine Mucus Rare H (None) /hpf Disposition Clinical Impression: Diverticulitis Disposition: HOME SELF-CARE Condition: Good Instructions (If sedation given, give patient instructions): Diverticulitis (ED), Diverticulitis Diet (ED) Additional Instructions: Take antibiotics as prescribed. Follow-up with your primary care doctor next week. Return to the emergency room with any new or concerning symptoms including persistent nausea/vomiting, increased abdominal pain or fevers. Prescriptions: Amoxic-Pot Clav 875-125Mg [Augmentin 875-125] 1 tab PO BID 10 Days #20 tab Is patient prescribed a controlled substance at d/c from ED?: No Referrals: Deepak Garcia MD [Primary Care Provider] - 1-2 days Time of Disposition: 17:41
[2022-04-14 15:32] LABS: Basophils # (A) 0.1 k/uL (0-0.2); Basophils % (A) 1 %; Eosinophils # (A) 0.2 k/uL (0-0.7); Eosinophils % (A) 1 %; HCT 42.5 % (34.0-46.0); HGB 13.6 gm/dL (11.4-16.0); Lymphocytes # (A) 2.4 k/uL (1.0-4.8); Lymphocytes % (A) 20 %; MCH 30.4 pg (25.0-35.0); MCHC 31.9 g/dL (31.0-37.0); MCV 95.2 fL (80.0-100.0); Mean Platelet Volume 7.6; Monocytes # (A) 0.6 k/uL (0-1.0); Monocytes % (A) 5 %; Neutrophils # (A) 8.6 k/uL (1.3-7.7); Neutrophils % (A) 72 %; Platelet Count 232 k/uL (150-450); RBC 4.46 m/uL (3.80-5.40)
[2022-04-14 15:46] LABS: ALT 63 U/L (4-34); AST 48 U/L (14-36); African American GFR (CKD) >90 (>60 ml/min/1.73 sqM); Albumin 4.7 g/dL (3.5-5.0); Alkaline Phosphatase 80 U/L (38-126); Amylase 59 U/L (30-110); Anion Gap 14 mmol/L; Blood Urea Nitrogen 9 mg/dL (7-17); Calcium 9.6 mg/dL (8.4-10.2); Carbon Dioxide 22 mmol/L (22-30); Chloride 101 mmol/L (98-107); Glucose 175 mg/dL (74-99); Lipase 60 U/L (23-300); Non-African American GFR(CKD) >90 (>60 ml/min/1.73 sqM); Potassium 4.1 mmol/L (3.5-5.1); Sodium 137 mmol/L (137-145); Total Bilirubin 0.5 mg/dL (0.2-1.3); Total Protein 7.2 g/dL (6.3-8.2)
[2022-04-14 15:47] LABS: INR 0.9 (<1.2); Partial Thromboplastin Time 25.1 sec (22.0-30.0); Prothrombin Time 9.8 sec (9.0-12.0)
[2022-04-14] MEDS ORDERED: SODIUM CHLORIDE 0.9% 500 ML 500 ML IV ONE (16:44)
[2022-04-14 17:13] VITALS: BP 164/78; PULSE 81
--- NOTE | 2022-04-14 17:28 | CT ---
EXAMINATION TYPE: CT abdomen pelvis w con DATE OF EXAM: 04/14/2022 COMPARISON: None HISTORY: LLQ pain CT DLP: 1684.4 mGycm Automated exposure control for dose reduction was used. CONTRAST: Performed with IV Contrast, patient injected with 100 mL of Isovue 300. Images obtained from the diaphragm to the floor the pelvis with IV contrast. Lung bases are clear. No pleural effusion. Heart size is normal. No pericardial effusion. There is some hypodensity in the liver consistent with some fatty infiltration. Spleen and pancreas a nd stomach appear intact. Gallbladder is intact. The bile ducts are not dilated. There is no adrenal mass. Kidneys show satisfactory contrast opacification. There is no hydronephrosi s. Ureters are not dilated. Delayed images show normal renal excretion. There is no retroperitoneal a denopathy. Bladder distends smoothly. No inguinal hernia. No free fluid in the pelvis. There is hyste rectomy. No pelvic mass. Appendix is posterior and appears normal. There is fat stranding around the descending colon. There are a few sigmoid diverticula. There are sc attered diverticula in the descending colon. The lumbar vertebrae have normal alignment. Posterior elements are intact. No compression fracture. B doc pelvis is intact. The hip joints are intact. IMPRESSION: There is inflammatory changes consistent with acute diverticulitis of the lower descending colon. Normal appendix. No evidence of an abscess.
[2022-04-14 17:37] LABS: Appearance,Urine Cloudy (Clear); Bacteria,Urine Rare /hpf; Bilirubin,Urine Negative (Negative); Blood,Urine Negative (Negative); Color,Urine Light Yellow; Glucose,Urine (UA) Negative (Negative); Ketones,Urine Negative (Negative); Leukocyte Esterase,Urine Large (Negative); Mucus,Urine Rare /hpf; Nitrite,Urine Positive (Negative); PH, Urine 5.5 (5.0-8.0); Protein,Urine Negative (Negative); RBC,Urine 2 /hpf (0-5); Specific Gravity,Urine 1.027 (1.001-1.035); Squamous Epithelial Cell,Urine 3 /hpf (0-4); Urobilinogen,Urine <2.0 mg/dL (<2.0); WBC,Urine 44 /hpf (0-5)
[2022-04-14] MEDS ORDERED: AMOXIC-POT CLAV 875-125MG 1 EACH TAB PO STA (17:41)
== END 2022-04-14 17:56 | disposition home or self-care (01) ==
LOC: EC 13:41
DX: K57.32 Diverticulitis of large intestine without perforation or abscess without bleeding (principal); M19.90 Unspecified osteoarthritis, unspecified site; E11.9 Type 2 diabetes mellitus without complications; Z87.891 Personal history of nicotine dependence; Z79.84 Long term (current) use of oral hypoglycemic drugs
CPT/HCPCS: 36415; 80053; 82150; 83605; 83690; 85025; 85610; 85730; 81001; 87086; 74177; 99284; 96374; 96361; J1170; Q9967

== ENCOUNTER 2022-08-12 08:01 | Emergency (ER) | payer BC ==
[2022-08-12 08:12] VITALS: TEMP 98.2
--- NOTE | 2022-08-12 08:41 | ED ---
Chest Pain HPI - General Chief Complaint: Chest Pain Stated Complaint: Chest Pain,SOB Time Seen by Provider: 08/12/22 08:10 Source: patient, RN notes reviewed, old records reviewed Mode of arrival: ambulatory Limitations: no limitations - History of Present Illness Initial Comments: This is a 51-year-old female with past medical history significant for diabetes, high cholesterol. Patient states she was a smoker but quit 2 years ago. Patient states her mother had heart disease as well. Patient states she started having chest pain last night radiating to the back she was also short of breath. Patient states there was no diaphoresis and no nausea. Patient states the chest pain continues now. Patient states taking a deep breath seems to make it worse but at baseline she always has some chest discomfort. Patient denies any fever chills or cough. Patient denies abdominal pain patient denies nausea vomiting diarrhea per patient denies any swelling to the legs or calf tenderness. - Related Data Home Medications Medication Instructions Recorded Confirmed Ibuprofen [Motrin] 800 mg PO Q8H PRN 02/19/22 02/20/22 metFORMIN HCL [Glucophage] 500 mg PO BID 02/19/22 02/20/22 Previous Rx's Medication Instructions Recorded Amoxic-Pot Clav 875-125Mg 1 tab PO BID 10 Days #20 tab 04/14/22 [Augmentin 875-125] Allergies Allergy/AdvReac Type Severity Reaction Status Date / Time No Known Allergies Allergy Verified 08/12/22 08:09 Review of Systems ROS Statement: Those systems with pertinent positive or pertinent negative responses have been documented in the HPI. ROS Other: All systems not noted in ROS Statement are negative. Past Medical History Past Medical History: Diabetes Mellitus, Hyperlipidemia, Osteoarthritis (OA), Sleep Apnea/CPAP/BIPAP Additional Past Medical History / Comment(s): C PAP MACHINE History of Any Multi-Drug Resistant Organisms: None Reported Past Surgical History: Section, Hysterectomy, Tubal Ligation, Uterine Ablation Additional Past Surgical History / Comment(s): LAPAROSCOPIC SURGERY, CARPAL TUNNEL RELEASE RIGHT WRIST, PAIN CLINIC INJECTIONS Past Anesthesia/Blood Transfusion Reactions: Previous Problems w/ Anesthesia Additional Past Anesthesia/Blood Transfusion Reaction / Comment(s): PATIENT STATES WORK UP WITH SURGERY - CARPAL TUNNEL SURGERY Past Psychological History: No Psychological Hx Reported Smoking Status: Former smoker Past Alcohol Use History: None Reported Past Drug Use History: None Reported - Past Family History Mother Family Medical History: Cancer Additional Family Medical History / Comment(s): MELENOMA Sister(s) Family Medical History: Cancer Additional Family Medical History / Comment(s): MELENOMA General Exam - General Exam Comments Initial Comments: GENERAL: Patient is well-developed and well-nourished. Patient is nontoxic and well- hydrated and is in mild distress. ENT: Neck is soft and supple. No significant lymphadenopathy is noted. Oropharynx is clear. Moist mucous membranes. Neck has full range of motion without eliciting any pain. EYES: The sclera were anicteric and conjunctiva were pink and moist. Extraocular movements were intact and pupils were equal round and reactive to light. Eyelids were unremarkable. PULMONARY: Unlabored respirations. Good breath sounds bilaterally. No audible rales rhonchi or wheezing was noted. CARDIOVASCULAR: There is a regular rate and rhythm without any murmurs gallops or rubs. ABDOMEN: Soft and nontender with normal bowel sounds. SKIN: Skin is clear with no lesions or rashes and otherwise unremarkable. NEUROLOGIC: Patient is alert and oriented x3. Cranial nerves II through XII are grossly intact. Motor and sensory are also intact. Normal speech, volume and content. Symmetrical smile. MUSCULOSKELETAL: Normal extremities with adequate strength and full range of motion. No lower extremity swelling or edema. No calf tenderness. LYMPHATICS: No significant lymphadenopathy is noted PSYCHIATRIC: Normal psychiatric evaluation. Limitations: no limitations Course Vital Signs 08/12/22 08:09 Temperature 98.2 F Pulse Rate 87 Respiratory 16 Rate Blood Pressure 157/90 O2 Sat by Pulse 98 Oximetry Chest Pain [facility] EKG was interpreted by myself. EKG shows sinus rhythm at 85 bpm MA interval 240 QRS is 89 QT interval 358 QTC is 400. Patient's EKG shows no ST segment elevation or depression. Was pt. sent in by a medical professional or institution (, PA, BASEBOARD HEATING INSTALLER, urgent care, hospital, or [place] health care facility...) When possible be specific @ -No Did you speak to anyone other than the patient for history (EMS, parent, family, police, friend...)? What history was obtained from this source @ -No Did you review nursing and triage notes (agree or disagree)? Why? @ -I reviewed and agree with nursing and triage notes Were old charts reviewed (outside hosp., previous admission, EMS record, old EKG, old radiological studies, urgent care reports/EKG's, [place] health care facility records)? Report findings @ -No old charts were reviewed Differential Diagnosis (chest pain, altered mental status, abdominal pain women, abdominal pain men, vaginal bleeding, weakness, fever, dyspnea, syncope, headache, dizziness, GI bleed, back pain, seizure, CVA, palpatations, mental health)? @ -Differential Chest Pain: Stable Angina, Unstable Angina, STEMI, NSTEMI Aortic Dissection, Pneumothorax, Musculoskeletal, Esophageal Spasm GERD, Cholecystitis, Pancreatitis, Zoster, this is not meant to be an all-inclusive list. EKG interpreted by me (3pts min.). @ -As above X-rays interpreted by me (1pt min.). @ -Patient arrived by myself I see no acute abnormality. CT interpreted by me (1pt min.). @ -None done U/S interpreted by me (1pt. min.). @ -None done What testing was considered but not performed or refused? (CT, X-rays, U/S, labs)? Why? @ -None What meds were considered but not given or refused? Why? @ -None Did you discuss the management of the patient with other professionals (professionals i.e. , PA, BASEBOARD HEATING INSTALLER, lab, RT, psych nurse, social services manager, mobility architect manager, teacher, school services officer, wind power project manager)? Give summary @ -I spoke with Dr. Enriquez came to the emergency department and saw the patient and stated that she could go home and that he would follow-up with her as an outpatient insured he has a stress test ordered. Was smoking cessation discussed for >3mins.? @ -No Was critical care preformed (if so, how long)? @ -No Were there social determinants of health that impacted care today? How? (Homelessness, low income, unemployed, alcoholism, drug addiction, transportation, low edu. Level, literacy, decrease access to med. care, custodial, rehab)? @ -No Was there de-escalation of care discussed even if they declined (Discuss DNR or withdrawal of care, Hospice)? DNR status @ -No What co-morbidities impacted this encounter? (DM, HTN, Smoking, COPD, CAD, Cancer, CVA, ARF, Chemo, Hep., AIDS, mental health diagnosis, sleep apnea, morbid obesity)? @ -Diabetes, Was patient admitted / discharged? Hospital course, mention meds given and route, prescriptions, significant lab abnormalities, going to OR and other pertinent info. @ -Patient will be discharged. Patient troponin was normal patient's chest x- ray was normal. Undiagnosed new problem with uncertain prognosis? @ -No Drug Therapy requiring intensive monitoring for toxicity (Heparin, Nitro, Insulin, Cardizem)? @ -No Were any procedures done? @ -No Diagnosis/symptom? @ -Chest pain Acute, or Chronic, or Acute on Chronic? @ -Acute Uncomplicated (without systemic symptoms) or Complicated (systemic symptoms)? @ -Complicated Side effects of treatment? @ -No Exacerbation, Progression, or Severe Exacerbation? @ -No Poses a threat to life or bodily function? How? (Chest pain, [place], MA, pneumonia, PE, COPD, DKA, ARF, appy, cholecystitis, CVA, Diverticulitis, Homicidal, Suicidal, threat to staff... and all critical care pts) @ -No Disposition Clinical Impression: Chest pain Disposition: HOME SELF-CARE Instructions (If sedation given, give patient instructions): Chest Pain (ED) Additional Instructions: Patient will follow-up with Dr. enriquez she will return if there is any difficulty breathing or worsening symptoms. Patient has a stress test scheduled already Is patient prescribed a controlled substance at d/c from ED?: No Referrals: Deepak Enriquez MD [Primary Care Provider] - 1-2 days Time of Disposition: 10:46
--- NOTE | 2022-08-12 09:08 | XR ---
EXAMINATION TYPE: XR chest 2V DATE OF EXAM: 08/12/2022 8:59 AM COMPARISON: Chest radiographs from 09/21/2020 TECHNIQUE: XR chest 2V Frontal and lateral views of the chest. CLINICAL INDICATION:Female, 52 years old with history of Chest Pain; FINDINGS: Lungs/Pleura: There is no evidence of pleural effusion, focal consolidation, or pneumothorax. Pulmonary vascularity: Unremarkable. Heart/mediastinum: Cardiomediastinal silhouette is unremarkable. Musculoskeletal: No acute osseous pathology. IMPRESSION: No acute cardiopulmonary disease/process.
[2022-08-12 09:16] LABS: Basophils % (A) 1 %; Eosinophils # (A) 0.1 k/uL (0-0.7); Eosinophils % (A) 1 %; HCT 39.9 % (34.0-46.0); HGB 13.9 gm/dL (11.4-16.0); Lymphocytes # (A) 1.7 k/uL (1.0-4.8); Lymphocytes % (A) 20 %; MCH 32.4 pg (25.0-35.0); MCHC 34.8 g/dL (31.0-37.0); MCV 93.2 fL (80.0-100.0); Mean Platelet Volume 8.1; Monocytes # (A) 0.3 k/uL (0-1.0); Monocytes % (A) 3 %; Neutrophils # (A) 6.3 k/uL (1.3-7.7); Neutrophils % (A) 74 %; Platelet Count 238 k/uL (150-450); RBC 4.28 m/uL (3.80-5.40); RDW 13.1 % (11.5-15.5); WBC 8.5 k/uL (3.8-10.6)
[2022-08-12 09:23] LABS: ALT 53 U/L (4-34); AST 56 U/L (14-36); African American GFR (CKD) >90 (>60 ml/min/1.73 sqM); Albumin 4.5 g/dL (3.5-5.0); Alkaline Phosphatase 82 U/L (38-126); Anion Gap 8 mmol/L; Blood Urea Nitrogen 9 mg/dL (7-17); Calcium 9.3 mg/dL (8.4-10.2); Carbon Dioxide 26 mmol/L (22-30); Chloride 104 mmol/L (98-107); Glucose 192 mg/dL (74-99); Non-African American GFR(CKD) >90 (>60 ml/min/1.73 sqM); Potassium 4.4 mmol/L (3.5-5.1); Sodium 138 mmol/L (137-145); Total Bilirubin 0.6 mg/dL (0.2-1.3)
[2022-08-12 09:28] LABS: INR 0.9 (<1.2); Partial Thromboplastin Time 25.2 sec (22.0-30.0); Prothrombin Time 9.9 sec (9.0-12.0)
[2022-08-12 09:55] LABS: Magnesium 1.9 mg/dL (1.6-2.3)
[2022-08-12] MEDS ORDERED: MAG HYDROX/AL HYDROX/SIMETH 30 ML, HYOSCYAMINE ELIXIR 10 ML, LIDOCAINE VISCOUS 2% 10 ML PO STA ×3 (10:54)
[2022-08-12 11:17] VITALS: BP 156/73; PULSE 78; RESP 18
== END 2022-08-12 11:21 | disposition home or self-care (01) ==
LOC: EC 08:01
DX: R07.89 Other chest pain (principal); E11.9 Type 2 diabetes mellitus without complications; M19.90 Unspecified osteoarthritis, unspecified site; G47.30 Sleep apnea, unspecified; Z87.891 Personal history of nicotine dependence; Z79.84 Long term (current) use of oral hypoglycemic drugs; Z79.1 Long term (current) use of non-steroidal anti-inflammatories (NSAID)
CPT/HCPCS: 36415; 71046; 80053; 83735; 84484; 85025; 85379; 85610; 85730; 93005; 99285

== ENCOUNTER → 2022-08-13 | Outpatient (CLI) | payer BC ==
[2022-08-14 02:22] LABS: Gliadin AB IgA, Deaminated NEGATIVE (NEGATIVE); Gliadin AB IgA, Unit 2.1 U/mL; Gliadin AB IgG, Deaminated NEGATIVE (NEGATIVE); Gliadin AB IgG, Unit <0.4 U/mL
== END | disposition home or self-care (01) ==
LOC: LABWHC1 15:49
PROVIDERS: ATTEND Internal Medicine Gastroenterology
DX: R10.30 Lower abdominal pain, unspecified (principal)
CPT/HCPCS: 36415; 83516

== ENCOUNTER → 2022-12-01 | Outpatient (CLI) | payer BC ==
[2022-12-01 13:08] LABS: Chol/HDL Ratio 5.96 Ratio; LDL Cholesterol,Calculated 195.6 mg/dL (0.0-131.0)
[2022-12-01 13:28] LABS: ALT 98 U/L (8-44); AST 80 U/L (13-35); African American GFR (CKD) 84.6 (60.0-200.0); Albumin 4.6 g/dL (3.8-4.9); Alkaline Phosphatase 76 U/L (41-126); BUN/Creat Ratio 16.56 Ratio (12.00-20.00); Blood Urea Nitrogen 14.9 mg/dL (9.0-27.0); Calcium 10.2 mg/dL (8.7-10.3); Carbon Dioxide 22.4 mmol/L (20.0-27.5); Chloride 105 mmol/L (96-109); Globulin 2.7 g/dL (1.6-3.3); Glucose 158 mg/dL (70-110); Potassium 4.7 mmol/L (3.5-5.5); Sodium 141 mmol/L (135-145); Total Protein 7.3 g/dL (6.2-8.2)
== END | disposition home or self-care (01) ==
LOC: LABWHC1 08:07
PROVIDERS: ATTEND Internal Medicine Interventional Cardiology
DX: E78.2 Mixed hyperlipidemia (principal)
CPT/HCPCS: 36415; 80053; 80061

== ENCOUNTER → 2023-03-16 | Outpatient (CLI) | payer BC ==
[2023-03-16 13:34] LABS: ALT 73 U/L (8-44); AST 80 U/L (13-35); Chol/HDL Ratio 3.07 Ratio; LDL Cholesterol,Calculated 66.8 mg/dL (0.0-131.0)
== END | disposition home or self-care (01) ==
LOC: LABWHC1 08:07
PROVIDERS: ATTEND Internal Medicine Interventional Cardiology
DX: E78.2 Mixed hyperlipidemia (principal)
CPT/HCPCS: 36415; 80061; 84450; 84460

== ENCOUNTER → 2023-08-09 | Outpatient (CLI) | payer BC ==
--- NOTE | 2023-08-12 20:15 | MM ---
Reason for Exam: Screening (asymptomatic). Last mammogram was performed 1 year(s) and 6 month(s) ago. Patient History: Menarche at age 9. First Full-Term at age 30. Late child-bearing (after 29). Left ovary removed at age 40. Right ovary removed at age 40. Hysterectomy at age 40. Postmenopausal. Patient has history of breast feeding. Progesterone for 1 month until age 28. Patient used Hormonal Contraceptives for 25 years. 1995, Benign Excisional Biopsy on the left side. Maternal aunt had breast cancer, age 50. Risk Values: Caren 5 year model risk: 2.0%. NCI Lifetime model risk: 14.5%. Prior Study Comparison: 09/05/2018 Bilateral Screening Mammogram, [facility]. 01/23/2021 Bilateral Screening Mammogram, [facility]. 02/28/2022 Bilateral MG screening mammo w CAD, [facility]. Tissue Density: The breast tissue is heterogeneously dense. This may lower the sensitivity of mammography. Findings: Analyzed By CAD. Pattern appears symmetrical and stable. No significant interval change is evident. There appears to be some chronic distortion in the anterior left breast. No suspicious groups of microcalcifications, spiculated or lobular masses, architectural distortion or other secondary signs of malignancy are mammographically apparent. Overall Assessment: Benign, BI-RAD 2 Management: Screening Mammogram of both breasts in 1 year. A negative mammogram report should not preclude additional follow up of suspicious palpable abnormalities. Patient should continue monthly self breast exam. A clinical breast exam by your physician is recommended on an annual basis and results should be correlated with mammographic findings. Electronically signed and approved by: Lenin Fraser D.O. Radiologis
--- NOTE | 2023-08-14 20:16 | BD ---
EXAMINATION TYPE: Axial Bone Density DATE OF EXAM: 08/12/2023 CLINICAL HISTORY: 53 years old Female. ICD-10 CODE: Z78.0 MENOPAUSE Height: 62.2in Weight: 202lb FRAX RISK QUESTIONS: Secondary Osteoporosis: RISK FACTORS HISTORY OF: Family History of Osteoporosis: pt unsure Active: yes Postmenopausal woman: pt unsure Take estrogen and/or progesterone medications: none current MEDICATIONS: Additional Medications: Additional History: EXAM MEASUREMENTS: Bone mineral densitometry was performed using the [employer] System. Bone mineral density as measured about the Lumbar spine is: ----- L1-L4(G/cm2): 1.323 T Score Values are as follows: ----- L1: 0.5 ----- L2: 0.9 ----- L3: 1.4 ----- L4: 1.6 ----- L1-L4: 1.2 Z Score Values are as follows: ----- L1: 0.3 ----- L2: 0.7 ----- L3: 1.2 ----- L4: 1.5 ----- L1-L4: 1.0 First dexa at [facility] Bone mineral density about the R hip (g/cm2): 1.035 Bone mineral density about the L hip (g/cm2): 1.178 T Score values are as follows: -----R Neck: -1.3 -----L Neck: -0.7 -----R Total: 0.2 -----L Total: 1.3 Z Score values are as follows: -----R Neck: -0.9 -----L Neck: -0.3 -----R Total: 0.2 -----L Total: 1.3 FRAX%s: The graph provided illustrates a % chance for a major osteoporotic fx and a % chance for the hips probability for fx in 10 years time. IMPRESSION: Osteopenia (T Score between -2.5 and -1). There is slightly increased risk of fracture and the patient may be considered for treatment. Re-Screen 2-5 years. NOTE: T-SCORE=SD OF THE YOUNG ADULT MEAN.
== END | disposition home or self-care (01) ==
LOC: RADBDWWP 15:59
PROVIDERS: ATTEND Family Medicine
DX: Z12.31 Encounter for screening mammogram for malignant neoplasm of breast (principal); M85.851 Other specified disorders of bone density and structure, right thigh; Z80.3 Family history of malignant neoplasm of breast; Z78.0 Asymptomatic menopausal state
CPT/HCPCS: 77063; 77067

== ENCOUNTER → 2023-10-25 | Outpatient (CLI) | payer BC ==
[2023-10-25 12:02] LABS: ALT 54 U/L (8-44); AST 48 U/L (13-35); Chol/HDL Ratio 4.27 Ratio; LDL Cholesterol,Calculated 115.2 mg/dL (0.0-131.0)
== END | disposition home or self-care (01) ==
LOC: LABWHC1 06:58
PROVIDERS: ATTEND Internal Medicine Interventional Cardiology
DX: E78.2 Mixed hyperlipidemia (principal)
CPT/HCPCS: 36415; 80061; 84450; 84460

== ENCOUNTER → 2024-10-02 | Outpatient (CLI) | payer BC ==
--- NOTE | 2024-10-02 08:12 | US ---
EXAMINATION TYPE: US pelvic complete DATE OF EXAM: 10/02/2024 COMPARISON: CT 2021 CLINICAL INDICATION: Female, 54 years old with history of R10.84 GENERALIZED ABDOMINAL PAIN; Intermit tent pelvic pain x couple months, history of hysterectomy 15 years ago TECHNIQUE: Transabdominal (TA). Transabdominal grayscale sonographic images of the pelvis were acquired. FINDINGS: Date of LMP: 15 years ago EXAM MEASUREMENTS: Right Ovary: 2.6 x 1.4 x 1.8 cm Left Ovary: 2.6 x 1.6 x 1.5 cm 1. Uterus: surgically absent 2. Endometrium: surgically absent 3. Right Ovary: appears wnl 4. Left Ovary: appears wnl 5. Bilateral Adnexa: wnl 6. Posterior cul-de-sac: wnl Symmetric normal size ovaries. No suspicious adnexal masses. No free fluid. IMPRESSION: No suspicious finding seen to account for patient's symptoms. [facility], , 10/02/2024 8:09 AM
--- NOTE | 2024-10-02 08:19 | US ---
EXAMINATION TYPE: US abdomen complete DATE OF EXAM: 10/02/2024 COMPARISON: CT abdomen and pelvis 2021 CLINICAL INDICATION: Female, 54 years old with history of R10.84 GENERALIZED ABDOMINAL PAIN; Intermit tent abdomen pain x couple months TECHNIQUE: Grayscale and color Doppler imaging of the abdomen was performed. FINDINGS: EXAM MEASUREMENTS: Liver Length: 16.1 cm Gallbladder Wall: 0.2 cm CBD: 0.6 cm Spleen: 10.1 cm Right Kidney: 9.3 x 4.5 x 5.2 cm Left Kidney: 10.5 x 5.6 x 5.6 cm Pancreas: visualized portions wnl, tail limited by overlying midline bowel gas Liver: increased attenuation, decreased visualization of vessels suggestive of fatty infiltrate Gallbladder: wnl Evidence for sonographic Truong's sign: no CBD: Upper limits of normal Spleen: visualized portions wnl, limited by overlying bowel gas Right Kidney: wnl Left Kidney: wnl Upper IVC: wnl Abd Aorta: atherosclerotic changes The liver is heterogeneously hyperechoic consistent with diffuse fatty infiltrative hepatocellular di sease. Evaluation for focal masses suboptimal due to the heterogeneity. The intrahepatic portion of t he IVC and proximal abdominal aorta are within normal limits. There is no evidence of cholelithiasis . Common bile duct is unremarkable. The visualized portions of the pancreas are homogenous. The sp munira is unremarkable. Kidneys are symmetric and free of hydronephrosis. No renal lesions are seen. IMPRESSION: Suboptimal study but No new or acute findings seen to account for patient's symptoms [facility], , 10/02/2024 8:17 AM
== END | disposition home or self-care (01) ==
LOC: RADUSWWP 07:12
PROVIDERS: ATTEND Family Medicine
DX: R10.84 Generalized abdominal pain (principal); Z90.710 Acquired absence of both cervix and uterus
CPT/HCPCS: 76700; 76856

== ENCOUNTER → 2025-01-22 | Outpatient (CLI) | payer BC ==
--- NOTE | 2025-01-22 07:41 | MM ---
Reason for Exam: Screening (asymptomatic). Last mammogram was performed 1 year(s) and 5 month(s) ago. Patient History: Menarche at age 9. First Full-Term at age 30. Late child-bearing (after 29). Left ovary removed at age 40. Right ovary removed at age 40. Hysterectomy at age 40. Postmenopausal. Patient has history of breast feeding. Progesterone for 1 month until age 28. Patient used Hormonal Contraceptives for 25 years. 1995, Benign Excisional Biopsy on the left side. Maternal aunt had breast cancer, age 50. Risk Values: Caren 5 year model risk: 2.1%. NCI Lifetime model risk: 14.2%. Prior Study Comparison: 01/23/2021 Bilateral Screening Mammogram, [facility]. 02/28/2022 Bilateral MG screening mammo w CAD, [facility]. 08/09/2023 Bilateral MG 3D screening mammo w/cad, [facility]. Tissue Density: The breasts are heterogeneously dense, which may obscure small masses. Findings: Analyzed By CAD. Asymmetric density medial aspect of the left breast on the CC view middle depth appears larger. This may represent superimposition shadow but further evaluation is recommended. Asymmetric density superior left MLO view anterior depth remains unchanged. Gallbladder asymmetry posterior upper outer quadrant right breast is unchanged. Other areas of asymmetric densities also remain unchanged. Overall Assessment: Incomplete: need additional imaging evaluation, BI-RAD 0 Management: Special View Mammogram of the left breast. Additional views to include spot 3-D CC, 3-D CC rolled, and 3-D LM views. [facility] will attempt to contact patient to return for supplemental views and ultrasound if indicated. [facility], , 01/22/2025 7:38 AM. Electronically signed and approved by: Yvon Gonzalez M.D. Radiologist
== END | disposition home or self-care (01) ==
LOC: RADMAMWWP 06:57
PROVIDERS: ATTEND Family Medicine
DX: Z12.31 Encounter for screening mammogram for malignant neoplasm of breast (principal); R92.333 Mammographic heterogeneous density, bilateral breasts; Z80.3 Family history of malignant neoplasm of breast; Z92.0 Personal history of contraception
CPT/HCPCS: 77063; 77067

== ENCOUNTER → 2025-01-27 | Outpatient (CLI) | payer BC ==
--- NOTE | 2025-01-27 12:59 | MM ---
Reason for Exam: Additional evaluation requested from prior study. Last screening mammogram was performed less than 1 month ago. Patient History: Menarche at age 9. First Full-Term at age 30. Late child-bearing (after 29). Left ovary removed at age 40. Right ovary removed at age 40. Hysterectomy at age 40. Postmenopausal. Patient has history of breast feeding. Progesterone for 1 month until age 28. Patient used Hormonal Contraceptives for 25 years. 1995, Benign Excisional Biopsy on the left side. Maternal aunt had breast cancer, age 50. Risk Values: Caren 5 year model risk: 2.1%. NCI Lifetime model risk: 14.2%. Prior Study Comparison: 02/28/2022 Bilateral MG screening mammo w CAD, [facility]. 08/09/2023 Bilateral MG 3D screening mammo w/cad, [facility]. 01/22/2025 Bilateral MG 3D screening mammo w/cad, [facility]. Tissue Density: Left: There are scattered areas of fibroglandular density. Findings: Analyzed By CAD. Area of concern/asymmetry compresses out on spot compression imaging. No suspicious masses, calcifications or distortions. Overall Assessment: Benign, BI-RAD 2 Management: Screening Mammogram of both breasts in 1 year. Results were given to the patient verbally at the time of exam. Patient should continue monthly self-breast exams. A clinical breast exam by your physician is recommended on an annual basis. This exam should not preclude additional follow-up of suspicious palpable abnormalities. Note on Caren scores and lifetime risk: 1. A Caren score greater than 3% is considered moderate risk. If this is the case, consider specialist referral to assess eligibility for a risk reducing agent. 2. If overall lifetime risk for the development of breast cancer is 20% or higher, the patient may qualify for future screening with alternating mammogram and breast MRI. [facility], , 01/27/2025 12:56 PM. Electronically signed and approved by: Low Baumann DO
== END | disposition home or self-care (01) ==
LOC: RADMAMWWP 12:39
PROVIDERS: ATTEND Family Medicine
DX: R92.8 Other abnormal and inconclusive findings on diagnostic imaging of breast (principal); R92.322 Mammographic fibroglandular density, left breast; Z78.0 Asymptomatic menopausal state; Z80.3 Family history of malignant neoplasm of breast; Z92.0 Personal history of contraception
CPT/HCPCS: 77061; 77065